=== PATIENT | female | born 1980 | race African-American/Black ===

== ENCOUNTER 2016-04-13 09:08 | Emergency (ER) | payer OTHER ==
[~2016-04-13] VITALS: Ht 162.6 cm; Wt 77.1 kg
[~2016-04-13 09:08] MED LIST: AMOXICILLIN500 MG ORAL; IBUPROFEN600 MG ORAL; NKM
[2016-04-13] MEDS ORDERED: BACITRACIN-POL1 EACH TOPIC (09:47)
[2016-04-13 09:52] VITALS: BP 116/77
[2016-04-13 09:57] VITALS: BP 116/77
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
== END 2016-04-13 09:58 | disposition home or self-care (01) ==
LOC: EMR 09:42
DX: T21.22XA Burn of second degree of abdominal wall, initial encounter (principal); X10.2XXA Contact with fats and cooking oils, initial encounter; Y92.9 Unspecified place or not applicable
CPT/HCPCS: 99282

== ENCOUNTER 2016-04-15 18:41 | Emergency (ER) | payer OTHER ==
[~2016-04-15] VITALS: Ht 162.6 cm; Wt 77.1 kg
[~2016-04-15 18:41] MED LIST changes: +BACITRACIN-POL1 EACH TOPIC
[2016-04-15 19:07] VITALS: BP 124/72
[2016-04-15] MEDS ORDERED: Dexamethasone 4mg/ml vial IM ONE (19:30)
[2016-04-15] MEDS ORDERED: HydrOXYzine 25mg tab ORAL ONE (19:30)
--- NOTE | 2016-04-15 19:32 | Emergency Room Report ---
History of Present Illness General Chief Complaint: Skin Rash/Abscess Source: Patient Present Illness HPI 35-year-old female presents to emergency Department complaining of chief rash over her body x2 days. Patient denies involvement of the face or respiratory tract. Patient states she has fallen on on the thighs upper extremities torso and back. She denies new lotions or detergents. She denies shortness of breath , difficulty breathing or wheezing. Patient denies swelling of the lips or tongue. She denies nausea, vomiting, fevers, chills, abdominal pain. Patient denies bruising. Denies recent travel. Denies ill contacts or persons with similar symptoms in the household. Denies CP, Palpitations, LOC, AMS, dizziness , Changes in Vision, Sensation, paresthesias, or a sudden severe headache. Allergies: Coded Allergies: No Known Allergies (Verified Allergy, Unknown, 04/17/08) Patient History Past Medical History: see triage record Past Surgical History: none Pertinent Family History: none Last Menstrual Period: 04/13/16 Now: No Immunizations: UTD Reviewed Nursing Documentation: PMH: Agreed, PSxH: Agreed Nursing Documentation-PMH Past Medical History: No Stated History Review of Systems All Other Systems: negative except mentioned in HPI Physical Exam Vital Signs Date Time Temp Pulse Resp B/P Pulse Ox O2 Delivery O2 Flow Rate FiO2 04/15/16 18:57 98.2 75 16 124/72 99 Room Air Sp02 EP Interpretation: reviewed, normal General Appearance: no apparent distress, alert, GCS 15, non-toxic Head: normocephalic, atraumatic Eyes: bilateral eye PERRL, bilateral eye normal inspection ENT: hearing grossly normal, normal pharynx, no angioedema, normal voice Neck: full range of motion, supple/symm/no masses Respiratory: chest non-tender, lungs clear, normal breath sounds, speaking full sentences Cardiovascular #1: regular rate, rhythm, no edema Gastrointestinal: normal bowel sounds, non tender, soft, no guarding, no rebound Rectal: deferred Genitourinary: normal inspection, no CVA tenderness Musculoskeletal: back normal, gait/station normal, normal range of motion, non- tender, no calf tenderness Neurologic: alert, oriented x3, responsive, motor strength/tone normal, sensory intact, speech normal Psychiatric: judgement/insight normal, memory normal, mood/affect normal, no suicidal/homicidal ideation Skin: normal color, warm/dry, well hydrated, rash - blanching erythematous rash , on the thighs,UE's, anterior chest, and back, no facial involvement. Lymphatic: no adenopathy Medical Decision Making PA Attestation Dr. bond is my supervising Physician whom patient management has been discussed with. Diagnostic Impression: Primary Impression: Rash and other nonspecific skin eruption ER Course Pt. presents to the ED c/o rash allover the body x 2 days. no fevers, no new lotions, detergents, or foods. no recent travel or other symptoms. Ddx considered but are not limited to cellulitis, scabies, shingles, varicella, dermatitis, urticaria, eczema, tinea Vital signs: are WNL, pt. is afebrile H&PE are most consistent with urticaria. ORDERS: none required at this time, the diagnosis is clinical ED INTERVENTIONS: - 8mg Decadron IM - 25mg Hydroxyzine DISCHARGE: At this time pt. is stable for d/c to home. Will provide printed patient care instructions, and any necessary prescriptions. Care plan and follow up instructions have been discussed with the patient prior to discharge. Last Vital Signs Date Time Temp Pulse Resp B/P Pulse Ox O2 Delivery O2 Flow Rate FiO2 04/15/16 19:07 98.2 79 16 124/72 99 Room Air Disposition: HOME, SELF-CARE Condition: Stable Scripts Hydrocortisone 2% Cream (ANTI-ITCH 2% CREAM) Y Cr 1 APPLIC TP TID, #56 GM Prov: Enid Anna 04/15/16 Hydroxyzine Hcl (HYDROXYZINE HCL) 25 Mg Tablet 25 MG PO TID, #60 TAB Prov: Enid Anna 04/15/16 Referrals: [facility]REFERR[facility] (PCP) Patient Instructions: Rash Additional Instructions: Take medications as directed. Follow up with PCP in 3-5 days Return sooner to ED if new symptoms occur, or current symptoms become worse. Do not drink alcohol, drive, or operate heavy machinery while taking Hydroxyzine as this may cause drowsiness. Enid Anna Apr 15, 2016 19:32
[2016-04-15] MEDS ORDERED: ANTI-ITCH56 GM TP (19:38)
[2016-04-15] MEDS ORDERED: HYDROXYZINE HCL25 M1 PO (19:38)
[2016-04-15 19:53] VITALS: BP 119/68
== END 2016-04-15 19:53 | disposition home or self-care (01) ==
LOC: EMR 19:06
DX: R21 Rash and other nonspecific skin eruption (principal)
CPT/HCPCS: 96372; 99284; J1100

== ENCOUNTER 2016-12-03 11:29 | Emergency (ER) | payer OTHER ==
[~2016-12-03] VITALS: Ht 162.6 cm; Wt 70.3 kg
[~2016-12-03 11:29] MED LIST changes: +ANTI-ITCH56 GM TP; +HYDROXYZINE HCL25 M1 PO
[2016-12-03] MEDS ORDERED: KEFLEX500 MG ORAL (12:04)
[2016-12-03 12:19] VITALS: BP 124/66
[2016-12-03 12:22] VITALS: BP 124/66
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
== END 2016-12-03 12:26 | disposition home or self-care (01) ==
LOC: EMR 12:12
DX: L03.115 Cellulitis of right lower limb (principal)
CPT/HCPCS: 99283

== ENCOUNTER 2017-07-19 14:25 | Emergency (ER) | payer OTHER ==
[~2017-07-19] VITALS: Ht 162.6 cm; Wt 68.0 kg
[~2017-07-19 14:25] MED LIST changes: +KEFLEX500 MG ORAL
[2017-07-19 14:39] VITALS: BP 109/72
--- NOTE | 2017-07-19 15:29 | Emergency Room Report ---
History of Present Illness General Chief Complaint: Pain Source: Patient Present Illness HPI 36-year-old female presents to the emergency department complaining of pain in 2 sites. Patient reports 9 on a 10 in severity pain, tenderness and intermittent swelling and clicking in the left knee x 2 weeks. Her knee pain is exacerbated upon squatting, and walking. Patient denies trauma or fall. Patient also reports localized tenderness to the dorsum of the right wrist. Patient has history of "swollen lump "they gets exacerbated with moderate use of the right hand. This symptoms has been intermittent for " a long time." Patient states she is right-hand dominant. Denies erythema, increased temperature palpation, fevers or chills. Allergies: Coded Allergies: No Known Allergies (Verified Allergy, Unknown, 04/17/08) Patient History Past Medical History: see triage record Past Surgical History: unable to obtain Pertinent Family History: none Last Menstrual Period: 07/16/17 Now: No Reviewed Nursing Documentation: PMH: Agreed; PSxH: Agreed Nursing Documentation-PMH Past Medical History: No Stated History Review of Systems All Other Systems: negative except mentioned in HPI Physical Exam Vital Signs Date Time Temp Pulse Resp B/P (MAP) Pulse Ox O2 Delivery O2 Flow Rate FiO2 07/19/17 14:30 98.3 71 12 109/72 97 Room Air 98.2 Sp02 EP Interpretation: reviewed, normal General Appearance: no apparent distress, alert, GCS 15, non-toxic Head: normocephalic, atraumatic ENT: hearing grossly normal, normal voice Neck: full range of motion Respiratory: lungs clear, normal breath sounds, speaking full sentences Cardiovascular #1: regular rate, rhythm, normal capillary refill Cardiovascular #2: 2+ radial (R), 2+ radial (L) Musculoskeletal: back normal, gait/station normal, normal range of motion, tender - TTP to the anterior left knee, no increased laxity , negative anterior and posterior drawer signs. TTP to the dorsum eith wrist, palpable nodule on dorsal aspect, otherwise no obvious deformities, FROM. Neurologic: alert, oriented x3, responsive, motor strength/tone normal, sensory intact, speech normal, grossly normal Psychiatric: judgement/insight normal Skin: normal color, no rash, warm/dry, well hydrated, other - palpable nodule on dorsum of the right wrist 1 cm in diameter, no erythma. Lymphatic: no adenopathy Medical Decision Making PA Attestation Dr. Campoverde is my supervising Physician whom patient management has been discussed with. Diagnostic Impression: Primary Impression: Ganglion cyst of dorsum of right wrist Additional Impressions: Left knee sprain Qualified Codes: S83.92XA - Sprain of unspecified site of left knee, initial encounter Knee pain, left Qualified Codes: M25.562 - Pain in left knee ER Course 36-year-old female presents to the emergency department complaining of pain in 2 sites. Patient reports 9 on a 10 in severity pain, tenderness and intermittent swelling and clicking in the left knee x 2 weeks. Her knee pain is exacerbated upon squatting, and walking. Patient denies trauma or fall. Patient also reports localized tenderness to the dorsum of the right wrist. Patient has history of "swollen lump "they gets exacerbated with moderate use of the right hand. This symptoms has been intermittent for " a long time." Patient states she is right-hand dominant. Denies erythema, increased temperature palpation, fevers or chills. Ddx considered but are not limited to Fracture, dislocation, contusion, Sprain/ Strain/Spasm, Meniscal injury, ganglion cysts, tendinitis just to name a few Vital signs: are WNL, pt. is afebrile H&PE are most consistent with musculoskeletal injury will perform imaging to r/ o fractures/dislocations. ORDERS: - X-ray's : left knee and right wrist. WNL ED INTERVENTIONS: - [place] PO Jeff wrap applied to the right wrist by information technology security manager. Pt. remains neurovascularly intact. -Jeff wrap applied to the Left Knee by information technology security manager. Pt. remains neurovascularly intact. --Patient is provided with crutches and instructed on their use DISCHARGE: At this time pt. is stable for d/c to home. Will provide printed patient care instructions, and any necessary prescriptions. Care plan and follow up instructions have been discussed with the patient prior to discharge. Other X-Ray Diagnostic Results Other X-Ray Diagnostic Results #1: X-Ray ordered: Left KNee # of Views/Limited Vs Complete: 3 View Indication: Pain EP Interpretation: Yes PA Xray: Interpretation reviewed, by supervising MD, and agrees with findings. Interpretation: no dislocation, no soft tissue swelling, no fractures Impression: No acute disease Electronically Signed by: Enid Anna PA-C Other X-Ray Diagnostic Results #2: X-Ray ordered: Right wrist # of Views/Limited Vs Complete: 3 View Indication: Pain PA Xray: Interpretation reviewed, by supervising MD, and agrees with findings. Interpretation: no dislocation, no soft tissue swelling, no fractures Impression: No acute disease Electronically Signed by: Enid Anna PA-C Last Vital Signs Date Time Temp Pulse Resp B/P (MAP) Pulse Ox O2 Delivery O2 Flow Rate FiO2 07/19/17 14:39 98.2 71 12 109/72 97 Room Air 98.2 Disposition: HOME, SELF-CARE Condition: Stable Scripts Naproxen* (NAPROXEN*) 500 Mg Tablet 500 MG ORAL TWICE A WEEK, #20 TAB 0 Refills Prov: Enid Anna 07/19/17 Patient Instructions: Ganglion Cyst, Knee Pain Additional Instructions: Take medications as directed. Follow up with a Primary Care Provider in 3-5 days, even if your symptoms have resolved. --Please review list of primary care clinics, if you do not already have a primary care provider Return sooner to ED if new symptoms occur, or current symptoms become worse. - Please note that this Emergency Department Report was dictated using Show de Ingressosimport/export specialist technology software, occasionally this can lead to erroneous entry secondary to interpretation by the dictation equipment. Enid Anna Jul 19, 2017 15:29
[2017-07-19] MEDS ORDERED: Norco 5mg/325mg tab ORAL ONE (15:30)
[2017-07-19] MEDS ORDERED: NAPROXEN500 M2 ORAL (15:36)
[2017-07-19 15:50] VITALS: BP 109/72
--- NOTE | 2017-07-19 16:05 | Diagnostic Imaging Report ---
Indications: Knee pain Technique: Three views of the left knee Comparison: None Findings: No acute fractures. No dislocations. Joint spaces are preserved. No radiopaque foreign body. Normal mineralization. Impression: No acute process
--- NOTE | 2017-07-19 16:06 | Diagnostic Imaging Report ---
Clinical Indication:Reason For Exam: PAIN Technique: 3 views of the right wrist Comparison: None Findings: No acute fractures. No dislocations. The joint spaces are preserved Impression: Negative
== END 2017-07-19 15:50 | disposition home or self-care (01) ==
LOC: EMR 15:03
DX: M67.431 Ganglion, right wrist (principal); S83.92XA Sprain of unspecified site of left knee, initial encounter; X58.XXXA Exposure to other specified factors, initial encounter; Y92.9 Unspecified place or not applicable
CPT/HCPCS: 99284